=== PATIENT | male | born 1980 | race Caucasian/White ===

== ENCOUNTER 2016-09-25 21:39 | Emergency (ER) | payer BC ==
--- NOTE | 2016-09-26 19:35 | ER ---
ADMIT: 09/25/2016 RM/LOC: ER [facility] MR#: [id number] [address] [id number] ELSY NUNEZ Kaley [address] [place] [id number] Emergency Room Report SEX: M AGE: 36 : 1980 DATE: 09/25/2016 HISTORY OF PRESENT ILLNESS: The patient is a 36-year-old male with past medical history of recently diagnosed hypertension, on lisinopril for the last month and anxiety, came to the ER with chief complaint of 1 hour of high blood pressure and palpitations and anxiety. The patient states that he checked the blood pressure it was systolic, it was close to 200, which was more than the baseline of the 120-130 with lisinopril 10 mg daily which brought the patient to the RE. PHYSICAL EXAMINATION: VITAL SIGNS: In the ER, the patient had systolic blood pressure of 210/111 with a heart rate of 94 and was afebrile and respiratory rate was 16. GENERAL: The patient was moderately distressed and anxious. HEAD AND NECK: Normal. LUNGS: Clear bilaterally. HEART: Normal heart sounds without any murmur or gallops. ABDOMEN: Soft. EXTREMITIES: Nontender. No swelling and the rest of the physical exam is also noncontributory. NEURO: The patient has normal neural exam. EMERGENCY DEPARTMENT COURSE: The patient denied any headaches or visual changes or nausea or vomiting. EKG was normal sinus rhythm with a rate of 96, the patient received already aspirin, in the ER, also received Ativan 1 mg IV, which significantly decreased anxiety and a recheck blood pressure systolic was 160/95. The patient's anxiety was resolved, lab work showed creatinine 1.0 and troponin I was negative. The rest of the BMP was also noncontributory and negative. The patient has close followup with the primary doctor, with a diagnosis of hypertension and anxiety. The patient can be discharged to home. At this moment, the patient has no signs or symptoms of end-organ damage and is stable to be discharged home to be followed by primary doctor. Plan was discussed with the patient. He acknowledged, understood, and agreed with it. The patient was discharged to home with return precautions. Carlitos Hoyt MD/ dennis JOB #: [id number] CC: Carlitos Hoyt MD, Attending Physician Aki Blancas MD, Family Physician
== END 2016-09-25 23:54 | disposition home or self-care (01) ==
LOC: ER 21:39
DX: I10 Essential (primary) hypertension (principal); F41.9 Anxiety disorder, unspecified